=== PATIENT | male | born 1940 | race Caucasian/White ===

== ENCOUNTER 2017-10-02 08:55 | Inpatient (IN) | payer OTHER ==
[2017-10-02] VITALS (13 sets, daily range): BP systolic 137–182; BP diastolic 61–82
[~2017-10-02] VITALS: Ht 180.3 cm; Wt 88.0 kg
[2017-10-02 09:31] LABS: HEMATOCRIT 41.9 % (42.0-52.0); HEMOGLOBIN 14.3 gm/dL (14.0-18.0); MCH 29.5 pg (26.0-34.0); MCHC 34.1 g/dL (28.0-37.0); MCV 86.6 fL (80.0-100.0); MPV 8.5 fl. (7.2-11.1); RBC 4.84 mil/uL (4.50-6.00); RDW-CV 13.7 % (10.5-14.5); WBC 6.2 thou/uL (4.0-11.0)
[2017-10-02 09:41] LABS: ANION GAP 6 mmol/L (7-16); APTT 25.3 Seconds (25.0-31.3); BUN 21 mg/dL (7-18); CALCIUM 9.1 mg/dL (8.5-10.1); CHLORIDE 103 mmol/L (98-107); CO2 31 mmol/L (21-32); CREATININE 1.1 mg/dL (0.6-1.3); GLUCOSE 146 mg/dL (70-99); INR 1.1; POTASSIUM 3.6 mmol/L (3.5-5.1); PROTIME 10.6 Seconds (9.20-11.50); SODIUM 140 mmol/L (136-145)
[2017-10-02 09:46] LABS: ALBUMIN 3.5 g/dL (3.4-5.0); ALKALINE PHOSPHATASE 63 U/L (46-116); CHOLESTEROL 167 mg/dL (<200); HDL CHOLESTEROL 66 mg/dL (>40); LDL CHOLESTEROL 83 mg/dL (<100); SERUM ASSESSMENT Clear; SGOT 17 U/L (15-37); SGPT 24 U/L (30-65); TC:HDL 2.5 Ratio (Not establshd); TOTAL BILIRUBIN 0.6 mg/dL (<0.1-1.0); TOTAL PROTEIN 7.5 g/dL (6.4-8.2); TRIGLYCERIDE 90 mg/dL (<150); VLDL 18 mg/dL (<40)
--- NOTE | 2017-10-02 10:03 | EKG ---
[place] [address] ELECTROCARDIOGRAM REPORT Name: BARAJASMANUEL SOLANO Alfredo Room: [facility]#: [id number] Admission: 10/02/17 Attend Phys: Wilmer Dubon MD Discharge: Date of : 44 Report #: [id number] THIS REPORT FOR: //name// [facility] Test Date: 2017-10-02 Test Time: 09:30:42 Pat Name: MANUEL BARAJAS Department: Room: Gender: M Stable Manager: [facility] : 1940 Requested By: Wilmer Dubon Order Number: [id number] Reading MD: Rah Nguyễn Measurements Intervals [place] Rate: 59 P: 43 TX: 206 QRS: 56 QRSD: 99 T: -59 QT: 414 QTc: 411 Interpretive Statements Sinus rhythm Probable left ventricular hypertrophy Nonspecific T abnormalities, inferior leads ST elevation, consider anterior injury No previous ECG available for comparison Electronically Signed On 10-02-2017 10:03:09 CDT by Rah Nguyễn [email or web address] <ELECTRONICALLY SIGNED> By: Rah Nguyễn MD, [facility] 10/02/17 1003 D: [id number] 9 Rah Nguyễn MD, FACC /EPI
[2017-10-02] MEDS ORDERED: METFORMIN HCL500 MG PO (10:15)
[2017-10-02] MEDS ORDERED: LISINOPRIL20 MG PO (10:16)
[2017-10-02] MEDS ORDERED: LIPITOR80 MG PO (10:17)
[2017-10-02] MEDS ORDERED: FLOMAX0.4 MG PO (10:17)
[2017-10-02] MEDS ORDERED: COREG25 M1 PO (10:18)
[2017-10-02] MEDS ORDERED: ASPIR 8181 MG PO (10:19)
[2017-10-02] MEDS ORDERED: PROSCAR 5MG TABL5 MG PO (10:19)
[2017-10-02] MEDS ORDERED: CENTRUM SILVER1 EAC4 PO (10:20)
[2017-10-02] MEDS ORDERED: STOOL SOFT-STI1 EACH PO (10:22)
[2017-10-02 22:41] LABS: HEMATOCRIT 42.5 % (42.0-52.0); HEMOGLOBIN 14.6 gm/dL (14.0-18.0)
[2017-10-03] VITALS: BP 162/83
[2017-10-03 04:00] VITALS: BP 194/85
[2017-10-03 05:20] LABS: HEMATOCRIT 39.8 % (42.0-52.0); HEMOGLOBIN 13.9 gm/dL (14.0-18.0); MCH 29.8 pg (26.0-34.0); MCHC 34.9 g/dL (28.0-37.0); MCV 85.4 fL (80.0-100.0); MPV 8.5 fl. (7.2-11.1); RBC 4.66 mil/uL (4.50-6.00); RDW-CV 13.3 % (10.5-14.5); WBC 7.8 thou/uL (4.0-11.0)
[2017-10-03 09:53] VITALS: BP 194/85
[2017-10-03] MEDS ORDERED: CLOPIDOGREL75 MG PO (10:00)
[2017-10-03] MEDS ORDERED: ASPIR 8181 MG PO (10:00)
--- NOTE | 2017-10-03 10:21 | EKG ---
[place] [address] ELECTROCARDIOGRAM REPORT Name: MANUEL BARAJAS Room: [address] ADM IN .R.#: [id number] Admission: 10/02/17 Attend Phys: Wilmer Dubon MD Discharge: Date of : 44 Report #: [id number] THIS REPORT FOR: //name// 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1940 Requested By: Rah Nguyễn Order Number: [id number] Ike MD: Rah Nguyễn Measurements Intervals [place] Rate: 68 P: 49 FL: 186 QRS: 37 QRSD: 98 T: -58 QT: 414 QTc: 441 Interpretive Statements Sinus rhythm Probable left ventricular hypertrophy Nonspecific T abnormalities, inferior leads ST elevation, consider repolarization Compared to ECG 10/02/2017 09:30:42 No significant changes Electronically Signed On 10-03-2017 10:21:26 CDT by Rah Nguyễn [email or web address] <ELECTRONICALLY SIGNED> By: Rah Nguyễn MD, [facility] 10/03/17 1021 [id number] Rah Nguyễn MD, [facility] /EPI
[2017-10-03 11:34] VITALS: BP 194/85
--- NOTE | 2017-10-05 10:32 | D ---
[address] [address] DISCHARGE SUMMARY Name: KARLMANUEL Alfredo Room: [address] IN M.R.#: [id number] Admission: 10/02/17 Attend Phys: Wilmer Dubon MD Discharge: 10/03/17 Date of : 44 Report #: [id number] THIS REPORT FOR: //name// CC: KIM Dubon Physician staff DATE OF SERVICE: 10/03/2017 DISCHARGE DIAGNOSES: 1. Unstable angina. 2. Coronary artery disease. 3. Hypertension. 4. Hyperlipidemia. PROCEDURES DURING THE HOSPITALIZATION: 1. Coronary angiography. 2. Attempted percutaneous coronary intervention. HOSPITAL COURSE: The patient was admitted electively to the hospital for left heart catheterization and coronary angiography after abnormal CV functional study. He was found to have a patent SANDERS graft to the LAD, patent saphenous vein graft in sequential fashion to the first diagonal and a large obtuse marginal branch and an occluded saphenous vein graft to the right coronary artery. The circle right coronary artery was patent. The circle right coronary artery was heavily calcified in its proximal and mid portion. A PCI was attempted. A wire was passed to the distal vessel. Due to tortuosity and calcification of the proximal vessel, a balloon was unable to be passed for further intervention. At this point in time, an intervention attempt was discontinued. The patient tolerated the procedure well without complication. For his progressive angina, he was started on ranolazine 500 mg twice daily. He will be referred to [facility] for possible atherectomy/rotablation. DISCHARGE MEDICATIONS: Aspirin 81 mg daily, atorvastatin 80 mg daily, carvedilol 25 mg b.i.d., finasteride 5 mg daily, lisinopril 20 mg daily, metformin 500 mg 2 tablets b.i.d., Centrum Silver 1 tablet daily, Senokot 1 tablet daily, Flomax 0.4 mg daily, ranolazine 500 mg b.i.d. FOLLOWUP: The patient is to follow up with [facility] for further intervention in the near future. This will be arranged. Follow up with myself in 2 months. <ELECTRONICALLY SIGNED> By: Wilmer Dubon MD, FACC 10/05/17 1032 1739 1937Micjoanna Dubon MD, FACC /nt
--- NOTE | 2017-10-06 13:28 | CARD ---
[address] [address] CARDIAC CATH REPORT Name: MANUEL BARAJAS Room: [address] [facility].#: [id number] Admission: 10/02/17 Attend Phys: Wilmer Dubon MD Discharge: 10/03/17 Date of : 44 Report #: [id number] THIS REPORT FOR: //name// APPROVED REPORT Study performed: 10/02/2017 09:37:31 Patient Details Patient Status: Out-Patient Room #: 209 The patient is a 77 year-old male Event Personnel Mame Vergara RN RN, Wilmer Dubon Data Sme, Félix Penny (Haim) Monitor, Aaron Dumont, Michela Pacheco Monitor, Rah Nguyễn County Surveyor, Cheyenne Jesus RN Equipment Coordinator, Félix Penny) Pam, Cristiana Graf RN Equipment Coordinator Procedures Performed Art Access - R femoral artery* , Left Heart Catheterization, Selective Right and Left Coronary Angiography, Coronary Angiography with grafts, Left Heart Catheterization Indication Unstable angina , Positive stress test Risk Factors Coronary Artery Disease Previous Procedures/Diagnoses Previous CABG Admission/Lab Medications/Medications given during procedure Platelet Aff. Inhib., Heparin Unfract. Procedure Narrative The patient was brought electively to the Cardiac Catheterization Laboratory and was prepped and draped in a sterile manner. The right femoral was infiltrated with 2% Lidocaine subcutaneous anesthesia. A 6fr Ultimum Sheath sheath was inserted into the right femoral artery. Coronary angiography was performed using coronary diagnostic catheters. The right coronary system was accessed and visualized with a Diagnostic JR 4 catheter. The left coronary system was accessed and visualized with a Diagnostic JL 4 catheter. Pre-demployment femoral angiogram was performed . Closure device was deployed with a [address] [place] [address] CARDIAC CATH REPORT Name: BARAJASMANUEL SOLANO Room: [address]#: [id number] Admission: 10/02/17 Attend Phys: Wilmer Dubon MD Discharge: 10/03/17 Date of : 44 Report #: [id number] MynxGrip 6/7F. The patient tolerated the procedure well and there were no complications associated with the procedure. Intraoperative Conscious Sedation Sedation start time: 12:05 Case end Time: 13:30 Fentanyl 75 mcg Versed 2 mg Fluoro Time: 16.1 minutes Dose: DAP [id number] cGycm2 2172.13 mGy Contrast Type and Amount: Omnipaque 350 ml [place] Artery Percent Stenosis Grafts (Complete if Previous CABG=Yes: Percent Stenosis) SANDERS graft to the mid LAD widely patent. Saphenous vein graft sequentially to the second diagonal and first obtuse marginal branch widely patent with good proximal and distal anastomoses. Saphenous vein graft right coronary artery chronically occluded at its origin. Diagnostic Cath Left Main Mildly plaqued. LAD Diffusely diseased and then totally occluded in its midportion. Distal vessel is small in caliber and diffusely plaqued and filled by a SANDERS graft. Diagonal 1 Small in caliber and diffusely diseased. Diagonal 2 Normal in appearance and filled by saphenous vein graft. Circumflex Totally occluded at its origin. OM1 Normal in appearance and filled by a saphenous vein graft. Right Coronary Severely diseased throughout the proximal to midportion with nodular calcifications noted. R PDA Mildly plaqued. Left Ventriculography Left Ventriculography was not performed. Hemodynamics The aortic pressure is 194/73 mmHg with a mean of mmHg. PCI Technique Lesion Anticoagulation was achieved with Heparin. iv aggrastat given Patient was preloaded with Plavix. Percutaneous coronary intervention was performed on the proximal right coronary artery. The lesion stenosis prior to intervention was 95% stenosis% with JUDITH 3 flow. A 6F AL [address] [place] [address] CARDIAC CATH REPORT Name: MANUEL BARAJAS Room: [address]#: [id number] Admission: 10/02/17 Attend Phys: Wilmer Dubon MD Discharge: 10/03/17 Date of : 44 Report #: [id number] Guide Catheter was used to engage the RCA ostium. A jeffrey nieto and fielder FC Interventional Guidewire was used to cross the lesion. BALLOON DILATION A Balloon catheter 2.5 x 8 mm was inserted and inflated up to 0atm for 0seconds. Repeat angiography revealed the following post-dilatation results: 95% stenosis. Final angiography reveals 95 % stenosis with JUDITH 3 flow. COMMENTS Extra support used with a 6 fr left amplatz I guide. Unable to advance BMW or whisper wire because of tortuosity and calcification. Able to advance whisper wire through a PTCA balloon placed proximally. However, because of lack of support, decided to use long fielder fc wire through a transit catheter. The long wire was able to be advanced into the distal RCA. However, dispite using the Guideliner, was unable to advance the balloon beyond the 2nd stenosis in the proximal RCA. It was decided to abandon further attempts at PTCA and refer for atherectomy. Conclusion 1. Patent SANDERS graft to lad 2. Patent SVG to diagonal and circumflex artery 3. 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 4 discrete lesions noted in the [place] RCA which was tortuous and heavily calcified Recommendations Consider refering the patient for atherectomy therapy Medications Administered Clopidogrel Diagnostic Cath Approved by: Wilmer Dubon MD Date/Time: <ELECTRONICALLY SIGNED> By: Rah Nguyễn MD, [facility] 10/06/17 1328 27 [id number] Nguyễn MD, FAC /INF
== END 2017-10-03 12:00 | disposition home or self-care (01) | DRG 287 ==
LOC: M.CL 08:55 → M.2W 13:04 → M.TBA 13:04 → M.2W 14:16
PROVIDERS: Internal Medicine Cardiovascular Disease; ADMIT Internal Medicine Cardiovascular Disease
DX: I25.110 Atherosclerotic heart disease of native coronary artery with unstable angina pectoris (principal); I10 Essential (primary) hypertension; E78.5 Hyperlipidemia, unspecified